=== PATIENT | female | born 1955 | race Caucasian/White ===

== ENCOUNTER 2018-12-23 18:41 | Emergency (ER) | payer OTHER ==
[~2018-12-23] VITALS: Ht 157.5 cm; Wt 109.0 kg
[2018-12-23 18:45] VITALS: Ht 157.5 cm; Wt 109.0 kg
[2018-12-23] MEDS ORDERED: SOD CHLORIDE 0.9% 1,000 ML IV STA (18:52)
[2018-12-23] MEDS ORDERED: HALOPERIDOL 5 MG INJ IM STA ×2 (18:52→20:26)
[2018-12-23] MEDS ORDERED: LORAZEPAM 2 MG INJ IM STA ×2 (18:52→20:26)
[2018-12-24 10:28] VITALS: BP 141/70; PULSE 67; RESP 16
== END 2018-12-24 10:27 | disposition home or self-care (01) ==
LOC: EDBD 18:41 → E/R 18:41
DX: F10.920 Alcohol use, unspecified with intoxication, uncomplicated (principal); F23 Brief psychotic disorder
CPT/HCPCS: 80053; 80307; 85025; 85610; 85730; 96372; 99284; J1630; J2060; J7030

== ENCOUNTER 2018-12-26 00:27 | Emergency (ER) | payer SELFPAY ==
[~2018-12-26] VITALS: Ht 157.5 cm; Wt 165.0 kg
[2018-12-26 00:29] VITALS: Ht 157.5 cm; Wt 165.0 kg
[2018-12-26] MEDS ORDERED: ONDANSETRON (ODT) 4 MG TAB ODT STA (00:41)
[2018-12-26 06:00] VITALS: BP 143/88; PULSE 73; RESP 15
== END 2018-12-26 07:18 | disposition home or self-care (01) ==
LOC: E/R 00:27
DX: F10.129 Alcohol abuse with intoxication, unspecified (principal); R40.2142 Coma scale, eyes open, spontaneous, at arrival to emergency department; R40.2362 Coma scale, best motor response, obeys commands, at arrival to emergency department; R40.2232 Coma scale, best verbal response, inappropriate words, at arrival to emergency department
CPT/HCPCS: 81003; 99283